=== PATIENT | male | born 1995 | race Caucasian/White ===

== ENCOUNTER 2019-04-11 10:03 | Inpatient (IN) | payer OTHER, SELFPAY ==
[2019-04-09 12:28] VITALS: BMI 34.7
[2019-04-11] VITALS (19 sets, daily range): BP systolic 122–169; BP diastolic 58–103; PULSE 80–116; RESP 10–18; TEMP 36.3–37.6; O2SAT 92–100; BMI 33.7
--- NOTE | 2019-04-11 | DI.RAD.S_ITS ---
PROCEDURE: XR LUMBAR SPINE 2-3V INDICATIONS: L5-S1 TLIF W/ INSTRUMENTATION TECHNIQUE: 2 views of the lumbar spine were acquired. COMPARISON: [facility] Outside Film, MR, MR LUMBAR SPINE WITH/WITHOUT CONTRAST, 10/16/2018, 12:58. FINDINGS: 2 intraoperative fluoroscopy images demonstrate discectomy and posterior fusion at L5-S1. Surgical hardware appears in appropriate position. IMPRESSION: Discectomy and posterior fusion at L5-S1. Dictated by: Joyce Blanca M.D. on 04/11/2019 at 14:37 Approved by: Joyce Blanca M.D. on 04/11/2019 at 14:38
--- NOTE | 2019-04-11 11:55 | PM.PREOP ---
Pre-operative Note Interval Note History & Physical reviewed/Exam performed by Physician: Yes Changes to H&P: No
[2019-04-11] MEDS: LACTATED RINGERS 1,000 ML 42 ML IV ×3 (12:15→16:36)
--- NOTE | 2019-04-11 12:28 | SUR.PREOP ---
Dr. Evans evaluated patient's toes. No new orders.
[2019-04-11] MEDS: CEFAZOLIN 2 GM/100 ML FROZ.PIGGY IV ×2 (12:45→23:50)
--- NOTE | 2019-04-11 13:23 | SUR.OPER ---
Prone on spine table, head in foam head support, padded chest and pelvic supports, gel pad at knees, lower legs supported by pillows; nipples, genitalia and toes free of pressure, arms secured on foam padded arm boards at <90 degrees abduction. Tape over blanket at thigh secured to table.
[2019-04-11] MEDS: BUPIVACAINE LIPOSOME 266 MG/20 ML VIAL INJ (13:39)
[2019-04-11] MEDS: BUPIVACAINE 0.25% W/ EPI 30 ML VIAL INJ (13:39)
--- NOTE | 2019-04-11 15:28 | P.OP_ITS ---
Operative Date/Time/Diagnoses Date of procedure: 04/11/19 Time of procedure: 12:28 Pre-op diagnosis: 1. L5-S1 recurrent disc herniation 2. L5-S1 spinal stenosis with radiculopathy Post-op diagnosis: same Procedure & Clinicians Procedure: 1. L5-S1 Postero-lateral and posterior interbody fusion 2. L5-S1 interbody cage placement. 3. L5-S1 decompressive laminectomy with bilateral facetecomies 4. L5-S1 Posterior non-segmental instrumentation 5. Prescott of bone marrow from iliac crest 6. Utilization of microsurgical technique and operating microscope Same procedure as scheduled: Yes Indications: Patient has been having chronic back pain and worsening lumbar radiculopathy. Patient had prior laminectomy with recurrence of his symptoms due to a L5-S1 disc herniation. Patient failed multiple conservative management with worsening pain weakness and numbness in her lower extremity. Patient has been having difficulty performing activity of daily living. After discussing risks benefits of treatment options, patient elected proceed with surgery. Surgeon: Peace Evans Implementation Technician: Marianna Bautista Click Yes if Unassisted: No Anesthesia Type: General Operative Notes Closure Type: primary Specimen(s): none sent Prosthetic devices, grafts, tissues, transplants, or devices: Golbus revolve, Rise cage Estimated Blood Loss (mL): 50 Blood products transfused: none Procedure in detail: Patient was seen in the preoperative area. Risks and benefits of the surgery was discussed with the patient. Informed consent was obtained from the patient and placed in the chart. Surgical site was marked. Patient was taken to the operative room. General anesthesia was administered. Prophylactic antibiotic was given to the patient less than 30 min before the incision was made. Patient was placed into a prone position on the Brannon table. Patient's back was then prepped and draped in the sterile fashion. Time- out was performed at this time. Using AP and lateral C-arm imaging the interval between L5-S1 was identified and marked on patient's back. A 2 inch incision 2 in from midline was made on the left side first. The fascia was incised in line with skin incision. Globus MARS retractors was placed inside the incision and docked onto the L5 lamina. Using microsurgical technique and operating microscope, a L5 laminectomy and L5-S1 facetectomy was performed using a Kerrison rongeur. The disc space at L5-S1 was identified. And a total diskectomy was performed at L5-S1 level. The endplates were decorticated using a rasp and shaver. The total diskectomy and decortication was performed at L5-S1 level in order to to accomplish a L5-S1 fusion. The local bone from the laminectomy and facetectomy was saved for local bone grafting. After the total diskectomy and decortication was completed, Bio4 bone graft material was combined with local bone that was harvested earlier. At this time, a separate skin is incision was made over the iliac crest. A Jamshidi needle was inserted into the iliac crest through a separate skin inc ision. 5 cc of bone marrow aspiration was obtained through the separate skin incision using a Jamshidi needle from the iliac crest. The bone marrow aspiration was combined with local bone and the Bio4 bone grafting material. The bone grafting material was placed into the L5-S1 interbody space along with a expandable cage. The cage was expanded to its maximum height using the torque limiting screwdriver. At this time a mirror image incision was made on the right side. The fascia was incised in line with the skin incision. Globus MARS retractor was inserted and docked onto the L5-S1 posterolateral gutter. Using the power drill, posterior- lateral decortication was performed at L5-S1 level until bleeding cortical bone was identified. The remaining bone grafting material was placed into the L5-S1 posterior lateral gutter he order to accomplish posterolateral fusion at the L5- S1 level. Using the double C-arm technique, pedicle screws were placed into the L5, S1 pedicles bilaterally. This was done by placing the Jamshidi needle into the pedicles, then placing the guidewires over the Jamshidi needle, and finally placing the cannulated screws over the guidewires bilaterally. After the pedicle screws were placed, 2 titanium rods was locked into the heads of the pedicle screws using locking caps and torque limiting screwdriver. After all the hardware was placed, and confirmed with AP and lateral C-arm imaging, the wound was then irrigated with sterile normal saline and packed with Ray-López gauze for 3 min to accomplish hemostasis. After the gauze was removed the deep fascia was closed with #1 Vicryl suture. The subcutaneous layer was closed with 2-0 Vicryl. The skin was closed with skin deniz. Patient tolerated the procedure well. There were no complications. Complications: none Post-operative Condition: stable Disposition: PACU Plan for aftercare: Admit to inpatient hospital
[2019-04-11] MEDS: fentaNYL 100 MCG/2 ML INJ 50 MCG IV ×2 (16:14→16:27)
[2019-04-11] MEDS: hydrOXYzine 50 MG/ML INJ IM (16:26)
[2019-04-11] MEDS: HYDROMORPHONE 2 MG INJ 0.5 MG IV ×2 (16:45→17:02)
[2019-04-11] MEDS: SODIUM CHLORIDE 0.9% 1,000 ML 100 ML IV (18:05)
--- NOTE | 2019-04-11 18:14 | PC.NURSE ---
1800: Angelina shift note: Received patient from PACU by Roxanna RN, bedside report. Awake, alert, and pleasant. No sensory or motor deficit to BLE. Discussed importance of precautions post back surgery. Verbalized understanding of no twisting, bending or heavy lifting and demonstrated log roll. SCDs placed as ordered. Oriented to room, environment, and plan of care. IVF initiated. Island barrier dressing to mid lower back, with min shadowing to right distal corner. Call light within reach.
[2019-04-11] MEDS: OXYCODONE IR 5 MG TABLET 10 MG PO ×2 (18:31→22:05)
[2019-04-11] MEDS: hydrOXYzine pamoate 25 MG CAPSULE PO (22:05)
[2019-04-11] MEDS: DOCUSATE 100 MG CAPSULE PO (22:05)
[2019-04-11] MEDS: ACETAMINOPHEN 325 MG TABLET 650 MG PO (22:05)
[2019-04-11] MEDS: SENNOSIDES 8.6 MG TABLET 17.2 MG PO (22:05)
[2019-04-11] MEDS: HYDROMORPHONE 1 MG INJ 0.5 MG IV (22:06)
[2019-04-12] VITALS (7 sets, daily range): BP systolic 118–149; BP diastolic 60–95; PULSE 108–121; RESP 14–19; TEMP 37.2–38.4; O2SAT 93–99
[2019-04-12] MEDS: HYDROMORPHONE 0.5 MG INJ IV ×3 (00:22→07:52)
[2019-04-12] MEDS: OXYCODONE IR 5 MG TABLET 10 MG PO ×3 (01:11→07:52)
[2019-04-12] MEDS: hydrOXYzine pamoate 25 MG CAPSULE PO ×2 (03:17→08:56)
[2019-04-12] MEDS: CEFAZOLIN 2 GM/100 ML FROZ.PIGGY IV (06:39)
[2019-04-12] MEDS: HYDROMORPHONE 2 MG TABLET PO ×2 (08:51→08:52)
[2019-04-12] MEDS: ACETAMINOPHEN 325 MG TABLET 650 MG PO ×2 (08:56→14:30)
[2019-04-12] MEDS: DOCUSATE 100 MG CAPSULE PO ×2 (08:56→21:00)
[2019-04-12] MEDS: LORATADINE 10 MG TABLET PO (08:56)
--- NOTE | 2019-04-12 09:32 | PM.PNPO.1 ---
Subjective Subjective Date Patient Seen: 04/12/19 Time Patient Seen: 09:32 Interval history: Hospital day 2, postop day 1 following L5-S1 laminectomy, TLIF, cage, bilateral posterior screw fixation by Dr. Evans. He has remained stable postoperatively. Has had significant pain postoperatively. Has been taking oxycodone 10 mg having to take Dilaudid IV for breakthrough pain. He has not been out of bed yet. No PT. He plans to go stay with his aunt and uncle locally post hospitalization. He is active-[employer] and is on convalescent leave. Exam Vital Signs (past 8 hours): - 04/12/19 03:30 04/12/19 08:49 04/12/19 08:56 Temperature 98.9 F 100.8 F H 100.8 F H Pulse Rate 108 H 121 H Respiratory Rate 19 17 Blood Pressure 119/67 127/80 Pulse Oximetry 94 97 Fraction of Inspired Oxygen 21 Oxygen Delivery Method Room Air Oxygen Flow Rate 0 Narrative Exam Narrative: Alert, oriented no acute distress appearing and moderate discomfort. Legs. No calf pain or swelling. Pulses symmetrical. Good sensation to touch to lower legs. Assessment & Plan Post-op Postoperative Procedures: Procedures Operation Date: 04/11/19 12:15 Actual Procedures Side Surgeon p L5-S1 TLIF with instrumentation Peace Evans MD plan: Will change oral pain medication to hydromorphone 2-4 mg q.3h instead of oxycodone to see if he has better pain control. He will work with PT today. Anticipate discharge home tomorrow if he is stable pending clearance by PT. Quality VTE Deep Vein Thrombosis/Pulmonary Embolism Present on Admission: No
--- NOTE | 2019-04-12 10:02 | PT.IIE ---
Current Diagnoses Spinal stenosis, lumbar region without neurogenic claudication (04/11/19) Other intervertebral disc displacement, lumbar region (04/11/19) Other specified postprocedural states (04/11/19) Surgery Performed Operation Date: 04/11/19 12:15 Actual Procedures p L5-S1 TLIF with instrumentation - Peace Evans MD Surgical History (Last Updated 04/09/19 @ 12:39 by Lissa Walker RN) Hx of microdiscectomy (Acute ~2013) Medical History (Last Updated 04/09/19 @ 12:29 by Lissa Walker RN) HTN (hypertension) (Acute) Spinal stenosis (Acute) Physical Therapy Inpatient Evaluation/Re-Eval M1 PT/OT-IP Prior Functional Status Start: 04/12/19 12:55 Freq: NEEDED Status: Active Protocol: Document 04/12/19 10:02 AB (Rec: 04/12/19 13:05 AB [email or web address]) Medical Review Prior Functional Status Medical History Reviewed Yes Communication able to make needs known Mobility and Gait pt stated that he is independent with all mobilities and ambulation without AD Social History Household Members none Number of Floors (Floors) One Floor Number of Stairs To Enter/Railing? 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 M2 PT-IP Current Condition Start: 04/12/19 12:55 Freq: NEEDED Status: Active Protocol: Document 04/12/19 10:02 AB (Rec: 04/12/19 13:05 AB [email or web address]) Physical Therapy Current Condition Current Condition Evaluation Date 04/12/19 Treatment Diagnosis s/p L5S1 fusion/lami; difficulty in walking Onset Date 04/11/19 Precautions Lumbar Precautions Log Roll,No Twisting,Limit Bending,Lifting Restriction of 10 lbs,Gait Belt above Incisional Area M3 PT-IP Subjective Start: 04/12/19 12:55 Freq: NEEDED Status: Active Protocol: Document 04/12/19 10:02 AB (Rec: 04/12/19 13:05 AB [email or web address]) Subjective Physical Therapy Visit Type Type Initial Evaluation Visit Start Time 10:02 Visit Stop Time 10:27 Total Visit Minutes 25 Number of FORM GRADER Visits 0 Physical Therapy Visit Comments Patient Comments pt agreeable to do PT Therapy Pain Assessment Pain When Pain Assessed At Rest Pain Present Pain Present Pain Reported Location Lower Back Intensity 4 Scale Used Numeric (1 - 10) Pain Management Techniques Apply Cold,Re-positioning, Timing of Activity with Medications M4 PT-IP Mobility and Gait Start: 04/12/19 12:55 Freq: NEEDED Status: Active Protocol: Document 04/12/19 10:02 AB (Rec: 04/12/19 13:05 [email or web address]) PT-Bed Mobility Assessment Rolling Type of Rolling Log Rolling Level of Assist Standby Assistance Supine to Sit Supine to Sit Contact Guard Assistance,1 Person Assistance Scooting Scooting to Edge of Bed Minimal Assistance PT-Transfer Assessment Sit to and From Stand Sit to and from Stand Minimal Assistance,1 Person Assistance,Use of Upper Extremities Equipment Transfer Assistive Device Gait Belt,Front Wheeled Walker Orthotic/Prosthetic Devices or Brace: No Transfers Transfer Destination Chair Transfer Technique pt ambulated using FWW Gait Assessment Gait Gait Assistance Required: Contact Guard Assist Distance (Feet) 75 Able to Maintain Weight Bearing Status Yes During Gait Assistive Devices Assistive Device Gait Belt,Front Wheeled Walker Orthotic/Prosthetic Devices or Brace: No Factors Limiting Gait Function Factors Limiting Gait Function Decreased Activity Tolerance, Limited Range of Motion,Pain, Poor Balance Comments Gait Comments pt ambulated in the hallway using FWW ~ 75 ft CGA and cues for safety PT-Balance Assessment Sitting Balance and Reactions Static Sitting Balance Ability Good Dynamic Sitting Balance Ability Good Standing Balance and Reactions Static Standing Balance Ability Fair Dynamic Standing Balance Ability Fair Device Used FWW M5 PT-IP Objective Assessments Start: 04/12/19 12:55 Freq: NEEDED Status: Active Protocol: Document 04/12/19 10:02 AB (Rec: 04/12/19 13:05 [email or web address]) Orientation Orientation/Cognition Level of Alertness Alert Orientation Name,Age,Birthday,Month,Date, Year,Day of Week,Place, Situation Language Function Ability No Deficits Noted Safety Awareness Understands Safety Issues Memory Description No Deficits Noted Gross Range of Motion Lower Extremity ROM Assessment Within Functional Limits Strength Lower Extremity Strength Assessment Within Functional Limits Coordination Assessment Gross Coordination Gross Coordination WNL Sensation Assessment Sensation Gross Sensation WNL Muscle Tone Muscle Tone WNL Yes M6 PT-IP Treatment Start: 04/12/19 12:55 Freq: NEEDED Status: Active Protocol: Document 04/12/19 10:02 AB (Rec: 04/12/19 13:05 AB [email or web address]) Physical Therapy Treatment Education Education Provided Precautions,Weight Bearing Status,Post-Op Packet,Safety M7 PT-IP Assessment and Plan Start: 04/12/19 12:55 Freq: NEEDED Status: Active Protocol: Document 04/12/19 10:02 AB (Rec: 04/12/19 13:05 AB [email or web address]) PT Summary Assessment and Plan Potential Rehabilitation Potential Good Status of Condition at Evaluation Stable Summary Impairments Pain,ROM,Strength,Balance,Bed Mobility,Transfers,Gait, Activity Tolerance Assessment Summary pt requiring CGA to min A with mobility and will likely progress during hospital stay. pt plans to go home and family will assist him. will continue to assess progress for safe d/c plan. Goals Bed Mobility Goal Independent Transfer Goal Independent,Front Wheeled Walker Gait Goal Independent,Front Wheel Walker Gait Distance 200 Days to Meet Goals 3 Frequency of Treatment Frequency Of Treatment Twice a Day Treatment Plan Physical Therapy Treatment Plan Bed Mobility Training,Transfer Training,Gait Training, Therapeutic Exercise,Balance Retraining,Post Op Education, Discharge Planning,Hot or Cold Pack,Neuromuscular Re-ed, Coordination Retraining,Manual Therapy Other Recommendations and Next Treatment bed mobility, transfers, Focus ambulation Recommendations To Nursing Amount of Assist Needed 1 Person Assist Discharge Recommendations PT Discharge Recommendations Home with Assistance Equipment Needed for Home Before FWW Discharge
[2019-04-12] MEDS: HYDROMORPHONE 2 MG TABLET 4 MG PO ×4 (11:39→21:00)
--- NOTE | 2019-04-12 14:15 | OT.IP.EVAL ---
Current Diagnoses Spinal stenosis, lumbar region without neurogenic claudication (04/11/19) Other intervertebral disc displacement, lumbar region (04/11/19) Other specified postprocedural states (04/11/19) Surgery Performed Operation Date: 04/11/19 12:15 Actual Procedures p L5-S1 TLIF with instrumentation - Peace Evans MD Past Medical History (Last Updated 04/09/19 @ 12:29 by Lissa Walker, RN) HTN (hypertension) (Acute) Spinal stenosis (Acute) Surgical History (Last Updated 04/09/19 @ 12:39 by Lissa Walker RN) Hx of microdiscectomy (Acute ~2014) Occupational Therapy Inpatient Evaluation/Re-Eval M1 PT/OT-IP Prior Functional Status Start: 04/12/19 12:55 Freq: NEEDED Status: Active Protocol: Document 04/12/19 13:51 [facility] (Rec: 04/12/19 14:15 [facility] [id number]) Medical Review Prior Functional Status Medical History Reviewed Yes Communication able to make needs known Mobility and Gait pt stated that he is independent with all mobilities and ambulation without AD Activities of Daily Living and IADL's Completely independent. Social History Household Members none Number of Floors (Floors) One Floor Number of Stairs To Enter/Railing? 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 OT-IP Current Condition Start: 04/12/19 12:34 Freq: Status: Active Protocol: Document 04/12/19 13:51 [facility] (Rec: 04/12/19 14:15 [facility] [id number]) Occupational Therapy Current Condition Current Condition Evaluation Date 04/12/19 Treatment Diagnosis L5-S1 laminectomy TLIF, bilateral posterior screw fixation Diagnosis Onset Date 04/11/19 Post Operative Precautions Lumbar Precautions Log Roll,No Twisting,Limit Bending,Lifting Restriction of 10 lbs,Gait Belt above Incisional Area Weight Bearing Status Weight Bearing Status Weight Bear as Tolerated M3 OT- IP Subjective and Pain Start: 04/12/19 12:34 Freq: Status: Active Protocol: Document 04/12/19 13:51 [facility] (Rec: 04/12/19 14:15 [facility] [id number]) OT- Subjective Occupational Therapy Visit Type Type Initial Evaluation Visit Start Time 10:08 Visit Stop Time 10:44 Total Visit Minutes 36 Occupational Therapy Visit Comments Patient Comments Pt agreeable to get up. Patient/Caregiver Goals To go home to aunt and uncle's house. OT Pain Assessment Pain When Pain Assessed At Rest Pain Present Pain Present Pain Reported Location Lower Back Intensity 7 Scale Used Numeric (1 - 10) M4 OT- IP ADL's Start: 04/12/19 12:34 Freq: Status: Active Protocol: Document 04/12/19 13:51 [facility] (Rec: 04/12/19 14:15 [facility] [id number]) OT ADL-Grooming General Evaluation Grooming Ability Standby Assistance Areas Needing Assistance Retrieving/Set-up of Grooming Items Comments OT Grooming Comments Pt able to stand with FWW to the sink for all grooming needs. OT ADL-Oral Care General Eval Oral Care Ability Independent OT ADL-Dressing General Eval Upper Body Dressing Ability Maximum Assistance Areas Needing Assistance Socks Comments OT Dressing Comments Pt states family has milk sampler at home and will not be wearing socks. Educated pt on how to use milk sampler and sock aid. OT ADL-Toileting General Evaluation Toileting Ability Standby Assistance Comments OT Toileting Comments SBA while pt standing in front of the toilet with FWW. OT ADL-Bathing Comments OT Bathing Comments To attempt tomorrow. Suggested may benefit from shower chair at home to use. M5 OT- IP IADL's Start: 04/12/19 12:34 Freq: Status: Active Protocol: Document 04/12/19 13:51 [facility] (Rec: 04/12/19 14:15 [facility] [id number]) OT-Instrumental Activities of Daily Living Home Safety Awareness Awareness of Need for Assistance at Home Good Awareness Ability to Problem Solve Emergency Able to Problem Solve Situations Home Safety Comments Pt to live with his aunt and uncle who will be assist to help care of him. Meal Preparation Meal Preparation Caregiver Provides Assist Interceptor Operator Interceptor Operator Caregiver Provides Assist M6 OT- IP Functional Cognition Start: 04/12/19 12:34 Freq: Status: Active Protocol: Document 04/12/19 13:51 [facility] (Rec: 04/12/19 14:15 [facility] [id number]) Cognitive Factors Limiting Selfcare Function Cognitive Ability Level of Alertness Alert Patient Orientation Name,Age,Birthday,Month,Date, Year,Day of Week,Place, Situation Attention Span Ability Capable of Focused Attention, Capable of Sustained Attention Ability to Follow Commands Able to Follow Multi-Step Commands Safety Awareness Decreased Ability to Apply Precautions Cognitive Comments Cognitive Assessment Comments Pt needing initial vc for back precautions and able to recall all back precautions after education. Pt appears to have no cognitive deficits at this time. OT- Vision and Hearing OT- Hearing Assessment OT- Hearing Assessment WFL OT- Vision Assessment Visual Acuity WFL M7 OT- IP Mobility and Balance Start: 04/12/19 12:34 Freq: Status: Active Protocol: Document 04/12/19 13:51 [facility] (Rec: 04/12/19 14:15 [facility] [id number]) OT- Bed Mobility Assessment Rolling Type of Rolling Roll to Left Supine to Sit Supine to Sit Assist Contact Guard Assistance,1 Person Assistance OT-Transfer Assessment Sit to and From Stand Sit to and from Stand Minimal Assistance Transfers Transfer Ability Minimal Assistance Technique Transfer Destination Bed,Chair Transfer Technique Stand Step Pivot Devices Transfer Assistive Devices Gait Belt,Front Wheeled Walker Comments Mobility Comments Pt having difficulty with transition coming up from sitting to standing and needing vc to straighten his leg out. Pt needing BOUBACAR for mobility needs. OT- Gait Assessment Gait Gait Assistance Required: Contact Guard Assist,Minimum Assistance,1 Person Assist Comments Gait Ability Comments Pt able to walk with PT in the hallway with FWW. OT- Balance Assessment Sitting Balance and Reactions Static Sitting Balance Ability Normal Dynamic Sitting Balance Ability Normal Standing Balance and Reactions Static Standing Balance Ability Good M8 OT- IP Objective Assessments Start: 04/12/19 12:34 Freq: Status: Active Protocol: Document 04/12/19 13:51 [facility] (Rec: 04/12/19 14:15 [facility] [id number]) OT Gross Range of Motion Upper Extremity Range of Motion Assessment Within Functional Limits OT Strength Upper Extremity Strength Assessment Within Functional Limits OT-Muscle Tone Assessment Muscle Tone WNL Yes M9 OT- IP Assessment and Plan Start: 04/12/19 12:34 Freq: Status: Active Protocol: Document 04/12/19 13:51 [facility] (Rec: 04/12/19 14:15 [facility] [id number]) OT Summary Assessment and Plan Potential Rehabilitation Potential Excellent Analytic Complexity at Evaluation Low Summary OT Impairments Functional Mobility,Dressing, Toileting,Bathing,Toilet Transfers,Shower Transfers Progress Towards Goals Progressing Toward Goals Assessment Summary Pt low complexity and main barrier is needing CGA to BOUBACAR for mobility needs and needing more education to incorporate back precautions for ADl needs. Pt to go home to aunt/uncle's home when medically ready. Goals Grooming Goal Independent Dressing Goal Standby Assistance Toileting Goal Standby Assistance Bathing Goal Minimal Assistance Toilet Transfer Goal Independent Shower Transfer Goal Contact Guard Assistance Patient/Caregiver Education Goal Demonstrate Post-Op Precautions Days to Meet Goals 3 Frequency of Treatment Frequency Of Treatment Once a Day Treatment Plan OT Treatment Plan ADL Training,Functional Mobility,Patient/Family Education,Discharge Planning Other Treatment Recommendations and Next Shower Treatment Focus Discharge Recommendations OT Discharge Recommendations Home with Assistance Home Equipment Needs shower chair?, FWW
--- NOTE | 2019-04-12 15:29 | PT.IPTN ---
Current Diagnoses Spinal stenosis, lumbar region without neurogenic claudication (04/11/19) Other intervertebral disc displacement, lumbar region (04/11/19) Other specified postprocedural states (04/11/19) Surgery Performed Operation Date: 04/11/19 12:15 Actual Procedures p L5-S1 TLIF with instrumentation - Peace Evans MD Physical Therapy Treatment Note M2 PT-IP Current Condition Start: 04/12/19 12:55 Freq: NEEDED Status: Active Protocol: Document 04/12/19 10:02 AB (Rec: 04/12/19 13:05 AB [email or web address]) Physical Therapy Current Condition Current Condition Evaluation Date 04/12/19 Treatment Diagnosis s/p L5S1 fusion/lami; difficulty in walking Onset Date 04/11/19 Precautions Lumbar Precautions Log Roll,No Twisting,Limit Bending,Lifting Restriction of 10 lbs,Gait Belt above Incisional Area M3 PT-IP Subjective Start: 04/12/19 12:55 Freq: NEEDED Status: Active Protocol: Document 04/12/19 15:29 AB (Rec: 04/12/19 16:54 AB [id number]) Subjective Physical Therapy Visit Type Type Treatment Note Visit Start Time 15:29 Visit Stop Time 15:45 Total Visit Minutes 16 Number of PICK REMOVER Visits 0 Physical Therapy Visit Comments Patient Comments pt agreeable to do PT; c/o increase pain Therapy Pain Assessment Pain When Pain Assessed At Rest Pain Present Pain Present Pain Reported Location Lower Back Scale Used pain scale not stated; stated a lot of pain Pain Management Techniques Apply Cold,Re-positioning, Timing of Activity with Medications M4 PT-IP Mobility and Gait Start: 04/12/19 12:55 Freq: NEEDED Status: Active Protocol: Document 04/12/19 15:29 AB (Rec: 04/12/19 16:54 AB [id number]) PT-Bed Mobility Assessment Rolling Type of Rolling Log Rolling Level of Assist Moderate Assistance,1 Person Assistance Sit to Supine Sit to Supine Moderate Assistance,1 Person Assistance PT-Transfer Assessment Sit to and From Stand Sit to and from Stand Moderate Assistance,1 Person Assistance,Use of Upper Extremities Equipment Transfer Assistive Device Bed Rail,Front Wheeled Walker Orthotic/Prosthetic Devices or Brace: Yes Gait Assessment Gait Gait Assistance Required: Moderate Assistance,1 Person Assist Distance (Feet) 20 Able to Maintain Weight Bearing Status Yes During Gait Assistive Devices Assistive Device Gait Belt,Front Wheeled Walker Orthotic/Prosthetic Devices or Brace: No Gait Deviations General Gait Pattern Antalgic,Decreased Stride Length,Decreased Feet Clearance Factors Limiting Gait Function Factors Limiting Gait Function Decreased Activity Tolerance, Decreased Strength,Limited Range of Motion,Pain,Poor Balance,Poor Safety Awareness Comments Gait Comments pt presents with unsteady gait with slow gennaro; increase UE use on FWW for stability. M5 PT-IP Objective Assessments Start: 04/12/19 12:55 Freq: NEEDED Status: Active Protocol: Document 04/12/19 10:02 AB (Rec: 04/12/19 13:05 AB [email or web address]) Orientation Orientation/Cognition Level of Alertness Alert Orientation Name,Age,Birthday,Month,Date, Year,Day of Week,Place, Situation Language Function Ability No Deficits Noted Safety Awareness Understands Safety Issues Memory Description No Deficits Noted Gross Range of Motion Lower Extremity ROM Assessment Within Functional Limits Strength Lower Extremity Strength Assessment Within Functional Limits Coordination Assessment Gross Coordination Gross Coordination WNL Sensation Assessment Sensation Gross Sensation WNL Muscle Tone Muscle Tone WNL Yes M6 PT-IP Treatment Start: 04/12/19 12:55 Freq: NEEDED Status: Active Protocol: Document 04/12/19 15:29 AB (Rec: 04/12/19 16:54 AB [id number]) Physical Therapy Treatment Education Education Provided Precautions,Safety M7 PT-IP Assessment and Plan Start: 04/12/19 12:55 Freq: NEEDED Status: Active Protocol: Document 04/12/19 15:29 AB (Rec: 04/12/19 16:54 AB [id number]) PT Summary Assessment and Plan Potential Rehabilitation Potential Fair Summary Impairments Pain,ROM,Strength,Balance, Coordination,Bed Mobility, Transfers,Gait,Activity Tolerance Progress Towards Goals Slow Progress due to Pain Assessment Summary pt requiring increase assistance this afternoon with c/o increase pain affecting mobility. d/c plan depending on progress and if family will be able to assist pt safely at home. will conduct caregiver training when appropriate. will continue to assess progress. Goals Bed Mobility Goal Independent Transfer Goal Independent,Front Wheeled Walker Gait Goal Independent,Front Wheel Walker Gait Distance 200 Days to Meet Goals 3 Frequency of Treatment Frequency Of Treatment Twice a Day Treatment Plan Physical Therapy Treatment Plan Bed Mobility Training,Transfer Training,Gait Training, Therapeutic Exercise,Balance Retraining,Post Op Education, Discharge Planning,Hot or Cold Pack,Neuromuscular Re-ed, Coordination Retraining,Manual Therapy Other Recommendations and Next Treatment bed mobility, transfers, Focus ambulation Recommendations To Nursing Amount of Assist Needed 1 Person Assist Discharge Recommendations PT Discharge Recommendations Home with 20/02 Assist,Home Health,SNF Rehab Equipment Needed for Home Before FWW Discharge
--- NOTE | 2019-04-12 16:37 | CM.DANOTE ---
Discharge Planning/Care Management DCP: assessment: initiated: EMR reviewed and discussed POC this morning with ortho EMMA Dennison in Team Rounds. Pt is a 23 year old male who admitted yesterday for a planned spinal surgery: Surgeon: Dr. Evans Payer: Mono Rosario. PT and OT were ordered and had not yet worked with pt. EMMA Dennison stated that pt planned to say with his aunt and unclear (Cliff Gutierrez) who lives in [place] while he recovers. Due to caseload triage needs and lateness of hour have not have chance to [place] in yet with pt. DCP team on tomorrow can follow up. More should be known in Rounds tomorrow after PT and OT have an update. P: expected to be home to Aunt/Uncles for recovery....follow as per above. Advanced directive, confirm from FAMILY Start: 04/11/19 18:40 Freq: Q24H Status: Active Protocol: Document 04/11/19 18:40 EM (Rec: 04/11/19 19:25 EM [id number]) Advance Directive, confirm on record Time 19:25 Person contacted CJ Copy received No CM Discharge Assessment Start: 04/12/19 16:35 Freq: Status: Active Protocol: Document 04/12/19 16:36 ITV (Rec: 04/12/19 16:36 ITV [id number]) Discharge Planning Assessment Advance Directives? Yes History Provided By Patient,Medical Record Household Members none Review Status In Process Pre-Anesthesia Assessment Start: 04/09/19 12:28 Freq: Status: Complete Protocol: Document 04/09/19 12:28 CAB (Rec: 04/09/19 12:39 CAB [id number]) Pre-Anesthesia Assessment PAC Comment Called pt 4 times to arrange PAC phone assessment. Voicemail not set up, unable to leave VM Patient Information Reviewed Via Chart Review H&P Completed Within 30 Days Yes Primary Care Provider Robe Wasserman Seen Specialist in Last 12 Months Yes Specialist Seen Orthopedist Primary Language Slovenian Indexer Required No Height 180.34 cm Weight 112.945 kg Body Mass Index (BMI) 34.7 Barriers to Learning None Other Aids No Anesthesia Review Requested No Dog Track Kennel Manager No alcohol intake current alcohol intake frequency a few times a week Smoking Status Never smoker Pain Present Pain Reported Musculoskeletal Symptoms Back Pain,Numbness,Radiating Pain into Limb History of Falling (Recent or History of No ) Patient is completely paralyzed or No completely immobile Mental Status Oriented to own ability Is patient on oxygen? No Hx Sleep Apnea No Currently Taking a Beta Rhona No Hx Chest Pain No Hx SOB No Hx Syncope or Dizziness No Anti-Coagulant Therapy No Has a Factory Process Workers No Cardiac Testing No Hx Pacemaker/ICD No Pacemaker Rep Required? No Cardiac Clearance Received Not Applicable Urinary Catheter Present No Hx Urinary Self Catheterization No Marital Status Single Patient Discharge Plan Description Return Home
[2019-04-12] MEDS: SENNOSIDES 8.6 MG TABLET 17.2 MG PO (21:00)
[2019-04-13] VITALS (7 sets, daily range): BP systolic 114–146; BP diastolic 61–86; PULSE 118–124; RESP 16–18; TEMP 37.6–38.4; O2SAT 94–99
[2019-04-13] MEDS: HYDROMORPHONE 2 MG TABLET 4 MG PO ×4 (01:12→12:49)
[2019-04-13] MEDS: ACETAMINOPHEN 325 MG TABLET 650 MG PO (01:13)
--- NOTE | 2019-04-13 08:36 | PC.NURSE ---
Addendum entered by Robert Alvarez R.N. 04/13/19 12:09: Pt readying for discharge. Fredi PT ands OT well. Dressing changed to coversite per PA. Pt calling Uncle for for ride. Pt up in chair eating lunch presently. Original Note: Pt arouses to name, follows commands, offers no overt c/o pain, temp continues at 99.9, discussed use of IS. Pt doing well with IS. Back dressing cdi. no overt drainage noted. Pt presently taking b'fast in bed.
[2019-04-13] MEDS: DOCUSATE 100 MG CAPSULE PO (08:57)
[2019-04-13] MEDS: ALLEGRA 180 MG 1 EACH PO (08:58)
--- NOTE | 2019-04-13 09:06 | PM.DS.1 ---
History of Present Illness History of Present Illness Date Patient Seen: 04/13/19 Time Patient Seen: 09:06 Chief complaint: [id number] Narrative: Patient has been having chronic back pain and worsening lumbar radiculopathy. Patient had prior laminectomy with recurrence of his symptoms due to a L5-S1 disc herniation. Patient failed multiple conservative management with worsening pain weakness and numbness in her lower extremity. Patient has been having difficulty performing activity of daily living. After discussing risks benefits of treatment options, patient elected proceed with surgery. Discharge Providers Provider Date of admission: 04/11/19 10:03 Discharge Date: 04/13/19 Primary care physician: Robe Wasserman DO Consults: 04/11/19 17:40 Consult to Occupational Therapy Evaluate & Treat Comment: Physician Instructions: Evaluate and treat Consult to Physical Therapy Evaluate & Treat Comment: Physician Instructions: Evaluate and Treat Discharge provider: Marianna Bautista PA-C Summary Hospital Course Discharge Diagnosis: s/p TLIF hypertension Hospital Course: Scott was admitted for an L5-S1 TLIF with Dr. Evans. Hospital course was unremarkable. On postop day 2. Patient was ready to discharge home. He was eating and voiding without difficulty or assistance. Pain was well controlled with Dilaudid and Vistaril. He was mobilizing with physical therapy throughout his stay. Status at Discharge Functional status at discharge: uses cane/walker Exam Vital Signs (past 8 hours): - 04/13/19 01:12 04/13/19 01:13 04/13/19 02:04 Temperature 101.2 F H 100.8 F H 99.7 F H Pulse Rate 118 H Respiratory Rate 16 Blood Pressure 124/86 Pulse Oximetry 94 04/13/19 08:48 04/13/19 08:57 Temperature 99.9 F H 99.9 F H Pulse Rate 124 H Respiratory Rate 16 Blood Pressure 114/61 Pulse Oximetry 99 Fraction of Inspired Oxygen 21 Oxygen Delivery Method Room Air Oxygen Flow Rate 0 Narrative Exam Narrative: Patient lying in bed in no acute distress. He is alert and oriented x3. Calves are soft, compressible, nontender bilaterally. Cover site dressing will be applied prior to discharge. He is able to actively dorsiflex plantar flex. Pulses are symmetrical. Sensation intact to light touch throughout bilateral extremities. Discharge Plan Discharge Plan Patient Disposition: Home Discharge Med Rec/Prescriptions Prescriptions: New acetaminophen 325 mg Tablet 650 mg PO Q6HR PRN (Reason: Pain, Mild (1-3)) Qty: 60 RF: 0 hydromorphone 2 mg Tablet 2 mg PO Q4HR Qty: 60 RF: 0 docusate sodium [DOK] 100 mg Capsule 100 mg PO BID Qty: 60 RF: 0 hydroxyzine HCl 25 mg tablet 25 mg PO Q6-8H PRN (Reason: muscle spasms) Qty: 40 RF: 1 Continued fexofenadine [Dalila Allergy] 180 mg Tablet 180 mg PO DAILY RF: 0 Follow up/Referrals: Robe Wasserman DO [Primary Care Provider] - Peace Evans MD [Physician] - Provider Discharge Instructions Activity: No excessive bending, lifting, or twisting Cold/Heat Therapy: As needed Skin/Wound/Dressing Care Report to your healthcare provider any signs of infection, such as:: chills, fever and increased pain Dressing: Cover site dressing on prior to discharge Visit Report/Discharge Packet Instructions: DI for Transforaminal Lumbar Interbody Fusion Discharge Data Primary Care Provider: Robe Wasserman Quality VTE Deep Vein Thrombosis/Pulmonary Embolism Present on Admission: No
--- NOTE | 2019-04-13 10:35 | PT.IPTN ---
Current Diagnoses Spinal stenosis, lumbar region without neurogenic claudication (04/11/19) Other intervertebral disc displacement, lumbar region (04/11/19) Other specified postprocedural states (04/11/19) Surgery Performed Operation Date: 04/11/19 12:15 Actual Procedures p L5-S1 TLIF with instrumentation - Peace Evans MD Physical Therapy Treatment Note M2 PT-IP Current Condition Start: 04/12/19 12:55 Freq: NEEDED Status: Active Protocol: Document 04/12/19 10:02 AB (Rec: 04/12/19 13:05 AB [email or web address]) Physical Therapy Current Condition Current Condition Evaluation Date 04/12/19 Treatment Diagnosis s/p L5S1 fusion/lami; difficulty in walking Onset Date 04/11/19 Precautions Lumbar Precautions Log Roll,No Twisting,Limit Bending,Lifting Restriction of 10 lbs,Gait Belt above Incisional Area M3 PT-IP Subjective Start: 04/12/19 12:55 Freq: NEEDED Status: Active Protocol: Document 04/13/19 10:35 GGD (Rec: 04/13/19 12:09 GGD [email or web address]) Subjective Physical Therapy Visit Type Type Treatment Note Visit Start Time 10:10 Visit Stop Time 10:34 Total Visit Minutes 24 Number of FERTILIZER APPLICATOR Visits 1 Physical Therapy Visit Comments Patient Comments Pt willing to work with therapy Therapy Pain Assessment Pain When Pain Assessed At Rest Pain Present Pain Present Pain Reported Location Lower Back Intensity 6 Scale Used Numeric (1 - 10) M4 PT-IP Mobility and Gait Start: 04/12/19 12:55 Freq: NEEDED Status: Active Protocol: Document 04/13/19 10:35 GGD (Rec: 04/13/19 12:09 GGD [email or web address]) PT-Bed Mobility Assessment Rolling Type of Rolling Log Rolling Level of Assist Standby Assistance,1 Person Assistance Supine to Sit Supine to Sit Contact Guard Assistance,1 Person Assistance Sit to Supine Sit to Supine Contact Guard Assistance,1 Person Assistance Scooting Scooting to Edge of Bed Standby Assistance PT-Transfer Assessment Sit to and From Stand Sit to and from Stand Contact Guard Assistance,1 Person Assistance,Use of Upper Extremities Equipment Transfer Assistive Device Gait Belt,Front Wheeled Walker Orthotic/Prosthetic Devices or Brace: No Transfers Transfer Destination Bed Transfer Ability Level of Assist Contact Guard Assistance,Use of Upper Extremities Gait Assessment Gait Gait Assistance Required: Standby Assistance Distance (Feet) 200 Able to Maintain Weight Bearing Status Yes During Gait Assistive Devices Assistive Device Gait Belt,Front Wheeled Walker Orthotic/Prosthetic Devices or Brace: No Gait Deviations General Gait Pattern Antalgic,Decreased Stride Length,Decreased Feet Clearance Factors Limiting Gait Function Factors Limiting Gait Function Decreased Activity Tolerance, Decreased Strength,Limited Range of Motion,Pain,Poor Balance M5 PT-IP Objective Assessments Start: 04/12/19 12:55 Freq: NEEDED Status: Active Protocol: Document 04/12/19 10:02 AB (Rec: 04/12/19 13:05 AB [email or web address]) Orientation Orientation/Cognition Level of Alertness Alert Orientation Name,Age,Birthday,Month,Date, Year,Day of Week,Place, Situation Language Function Ability No Deficits Noted Safety Awareness Understands Safety Issues Memory Description No Deficits Noted Gross Range of Motion Lower Extremity ROM Assessment Within Functional Limits Strength Lower Extremity Strength Assessment Within Functional Limits Coordination Assessment Gross Coordination Gross Coordination WNL Sensation Assessment Sensation Gross Sensation WNL Muscle Tone Muscle Tone WNL Yes M6 PT-IP Treatment Start: 04/12/19 12:55 Freq: NEEDED Status: Active Protocol: Document 04/13/19 10:35 GGD (Rec: 04/13/19 12:09 GGD [email or web address]) Physical Therapy Treatment Education Education Provided Precautions,Safety Equipment Issued Equipment Type and Company FWW M7 PT-IP Assessment and Plan Start: 04/12/19 12:55 Freq: NEEDED Status: Active Protocol: Document 04/13/19 10:35 GGD (Rec: 04/13/19 12:09 GGD [email or web address]) PT Summary Assessment and Plan Summary Assessment Summary Pt improving with mobility. He was able to progress gait distance. He is safe for home D/C when medically stable. Frequency of Treatment Frequency Of Treatment Twice a Day Treatment Plan Physical Therapy Treatment Plan Bed Mobility Training,Transfer Training,Gait Training, Therapeutic Exercise,Balance Retraining,Post Op Education, Discharge Planning,Hot or Cold Pack,Neuromuscular Re-ed, Coordination Retraining,Manual Therapy Recommendations To Nursing Amount of Assist Needed 1 Person Assist Discharge Recommendations PT Discharge Recommendations Home with Assistance
--- NOTE | 2019-04-13 12:28 | OT.IP.TRT ---
Current Diagnoses Spinal stenosis, lumbar region without neurogenic claudication (04/11/19) Other intervertebral disc displacement, lumbar region (04/11/19) Other specified postprocedural states (04/11/19) Surgery Performed Operation Date: 04/11/19 12:15 Actual Procedures p L5-S1 TLIF with instrumentation - Peace Evans MD Occupational Therapy Treatment Note M2 OT-IP Current Condition Start: 04/12/19 12:34 Freq: Status: Active Protocol: Document 04/12/19 13:51 [facility] (Rec: 04/12/19 14:15 [facility] [id number]) Occupational Therapy Current Condition Current Condition Evaluation Date 04/12/19 Treatment Diagnosis L5-S1 laminectomy TLIF, bilateral posterior screw fixation Diagnosis Onset Date 04/11/19 Post Operative Precautions Lumbar Precautions Log Roll,No Twisting,Limit Bending,Lifting Restriction of 10 lbs,Gait Belt above Incisional Area Weight Bearing Status Weight Bearing Status Weight Bear as Tolerated M3 OT- IP Subjective and Pain Start: 04/12/19 12:34 Freq: Status: Active Protocol: Document 04/13/19 12:17 [facility] (Rec: 04/13/19 12:28 [facility] [id number]) OT- Subjective Occupational Therapy Visit Type Type Treatment Note Visit Start Time 11:28 Visit Stop Time 12:15 Total Visit Minutes 47 Occupational Therapy Visit Comments Patient Comments Pt willing to shower. Patient/Caregiver Goals To go home to his aunt and uncle's house. OT Pain Assessment Pain When Pain Assessed At Rest Pain Present Pain Present Pain Reported Location Lower Back Intensity 7 Scale Used Numeric (1 - 10) M4 OT- IP ADL's Start: 04/12/19 12:34 Freq: Status: Active Protocol: Document 04/13/19 12:17 [facility] (Rec: 04/13/19 12:28 [facility] [id number]) OT [id number] General Evaluation Self-Feeding Ability Independent OT ADL-Dressing General Eval Upper Body Dressing Ability Standby Assistance Lower Body Dressing Ability Minimal Assistance Areas Needing Assistance Shoes Comments OT Dressing Comments After education pt able to the desulphurizer operator to john brief/shorts and needing assist for tie shoes. Suggested for pt to wear loose clothing and slip on shoes. OT ADL-Toileting General Evaluation Toileting Ability Independent OT ADL-Bathing Bathing Type Bathing Type Shower General Evaluation Bathing Ability Minimal Assistance Areas Needing Assistance Wash/Dry Perineal Area Devices Bathing Equipment Grab Bars Comments OT Bathing Comments Pt states will just sponge off initially, or have family get a shower chair for walk in shower. Pt open to the suggestion of having aunt/ uncle assist him the shower initially. M5 OT- IP IADL's Start: 04/12/19 12:34 Freq: Status: Active Protocol: Document 04/12/19 13:51 [facility] (Rec: 04/12/19 14:15 [facility] [id number]) OT-Instrumental Activities of Daily Living Home Safety Awareness Awareness of Need for Assistance at Home Good Awareness Ability to Problem Solve Emergency Able to Problem Solve Situations Home Safety Comments Pt to live with his aunt and uncle who will be assist to help care of him. Meal Preparation Meal Preparation Caregiver Provides Assist Slitter Scorer Cut Off Operator Slitter Scorer Cut Off Operator Caregiver Provides Assist M6 OT- IP Functional Cognition Start: 04/12/19 12:34 Freq: Status: Active Protocol: Document 04/13/19 12:17 [facility] (Rec: 04/13/19 12:28 [facility] [id number]) Cognitive Factors Limiting Selfcare Function Cognitive Ability Level of Alertness Alert Patient Orientation Name Attention Span Ability Capable of Focused Attention, Capable of Sustained Attention Ability to Follow Commands Able to Follow One Step Commands Memory Description Short Term Impaired Safety Awareness Decreased Ability to Apply Precautions,Underestimates Need for Assistance Problem Solving Ability Unable to Identify Errors, Needs Assist to Identify Solutions Cognitive Comments Cognitive Assessment Comments Pt needing safety reminders for coming to stand and sit, pt has a tendency to keep his back straight versus, leaning forwards and hinging at his hips so able to use his leg more to help to stand. M7 OT- IP Mobility and Balance Start: 04/12/19 12:34 Freq: Status: Active Protocol: Document 04/13/19 12:17 [facility] (Rec: 04/13/19 12:28 [facility] [id number]) OT-Transfer Assessment Sit to and From Stand Sit to and from Stand Standby Assistance,Contact Guard Assistance Transfers Transfer Ability Standby Assistance,Contact Guard Assistance Technique Transfer Destination Chair,Shower Stall,Toilet Transfer Technique Stand Step Pivot Devices Transfer Assistive Devices Gait Belt,Front Wheeled Walker Comments Mobility Comments VC to not twist while using FWW. CGA to come up from lower surfaces. M8 OT- IP Objective Assessments Start: 04/12/19 12:34 Freq: Status: Active Protocol: Document 04/12/19 13:51 [facility] (Rec: 04/12/19 14:15 [facility] [id number]) OT Gross Range of Motion Upper Extremity Range of Motion Assessment Within Functional Limits OT Strength Upper Extremity Strength Assessment Within Functional Limits OT-Muscle Tone Assessment Muscle Tone WNL Yes M9 OT- IP Assessment and Plan Start: 04/12/19 12:34 Freq: Status: Active Protocol: Document 04/13/19 12:17 [facility] (Rec: 04/13/19 12:28 [facility] [id number]) OT Summary Assessment and Plan Summary Progress Towards Goals Progressing Toward Goals Assessment Summary Pt going home today with aunt and uncle. Goals Days to Meet Goals 1 Treatment Plan OT Treatment Plan Patient/Family Education Discharge Recommendations OT Discharge Recommendations Home with Assistance Home Equipment Needs shower chair
--- NOTE | 2019-04-13 14:02 | CM.DPC ---
DCP Cont: Per Ortho PA, pt medically stable to d/c home with family today after further PT/OT. Per PT/OT, still recommending d/c home with aunt and uncle support and outpt therapy. Per RN, no concerns at this time. Plan: Patient to d/c home today via family POV and assist and outpt PT. No SW needs at this time. SHELBY Sanchez
== END 2019-04-13 13:30 | disposition home or self-care (01) | DRG 455 ==
PROVIDERS: Admitting Provider Orthopaedic Surgery Orthopaedic Surgery of the Spine; PCP Orthopaedic Surgery; Visit Provider Orthopaedic Surgery Orthopaedic Surgery of the Spine
PROC: 0SG30AJ Fusion of Lumbosacral Joint with Interbody Fusion Device, Posterior Approach, Anterior Column, Open Approach (ICD-10-PCS; principal; 2019-04-11 12:15)
DX: M48.061 Spinal stenosis, lumbar region without neurogenic claudication (principal); M51.26 Other intervertebral disc displacement, lumbar region; E66.9 Obesity, unspecified; Z68.33 Body mass index [BMI] 33.0-33.9, adult
CPT/HCPCS: 72100; 76000; 97116; 97161; 97165; 97530; 97535; C1776; C9290; J0330; J0690; J1170; J2250; J2405; J2704; J3010; J3410